=== PATIENT | female | born 1950 | race Asian ===

== ENCOUNTER 2018-05-21 12:42 | Emergency (ER) | payer SELFPAY ==
[~2018-05-21] VITALS: Ht 162.6 cm; Wt 63.0 kg
[2018-05-21] MEDS ORDERED: MORPHINE SULFATE 4 MG/ML CPJ (NOT FOR IM USE) IV STA (13:10)
[2018-05-21] MEDS ORDERED: ONDANSETRON HCL 4MG/2ML VIAL IV STA (13:10)
[2018-05-21] MEDS ORDERED: PIPERACILLIN/TAZOBACTAM 3.375GM/50ML PREMIX IV ONE (13:15)
[2018-05-21] MEDS ORDERED: BACITRACIN ZINC OINT UDPKT TOP ONE (13:15)
[2018-05-21] MEDS ORDERED: LIDOCAINE HCL 1%/EPI 1:200,000 30 ML VIAL MC ONE (13:15)
[2018-05-21] MEDS ORDERED: PIPERACILLIN/TAZ 3.375G PREMIX 50 ML IV NR (13:18)
[2018-05-21 13:31] VITALS: BP 114/72
[2018-05-21] MEDS ORDERED: LIDOCAINE HCL/EPINEPHRINE 1%-EPI 1:100,000 50 ML VIAL INFIL SCH (13:45)
== END 2018-05-21 14:34 | disposition home or self-care (01) ==
LOC: ER 13:18
DX: S51.851A Open bite of right forearm, initial encounter (principal); W54.0XXA Bitten by dog, initial encounter; Y93.89 Activity, other specified; Y92.89 Other specified places as the place of occurrence of the external cause
CPT/HCPCS: 12002; 73090; 96365; 96375; 99284; J2270; J2405; J2543; X7700; Z7610

== ENCOUNTER 2020-09-13 14:56 | Emergency (ER) | payer OTHER ==
[~2020-09-13] VITALS: Ht 167.6 cm; Wt 60.0 kg
[2020-09-13] MEDS ORDERED: TETANUS, DIPHTHERIA, PERTUSSIS VAC/PF 0.5ML (>7YR OLD) IM ONE (16:15)
[2020-09-13] MEDS ORDERED: HYDROCODONE/ACETAMINOPHEN 5/325MG TABLET PO ONE (16:45)
[2020-09-13] MEDS ORDERED: BACITRACIN ZINC OINT UDPKT TOP ONE (16:45)
[2020-09-13] MEDS ORDERED: AMOXICILLIN/POTASSIUM CLAVULANATE 875/125MG TAB PO ONE (16:45)
[2020-09-13 18:04] VITALS: BP 118/71
== END 2020-09-13 18:06 | disposition home or self-care (01) ==
LOC: ER 14:56
DX: S81.051A Open bite, right knee, initial encounter (principal); W54.0XXA Bitten by dog, initial encounter; Y93.89 Activity, other specified; Y92.018 Other place in single-family (private) house as the place of occurrence of the external cause
CPT/HCPCS: 73560; 90471; 90715; 99283